=== PATIENT | male | born 1940 | race Caucasian/White ===

== ENCOUNTER 2019-02-04 20:57 | Observation (INO) ==
[2019-02-04] MEDS ORDERED: ASPIRIN PR ONE (21:26)
[2019-02-04] MEDS ORDERED: ASPIRIN PO ONE (21:26)
--- NOTE | 2019-02-04 21:36 | PROVIDER DOCUMENTATION ---
HPI-Respiratory General - General Chief Complaint: Shortness of Breath Stated Complaint: BP 230/113 30 MINUTES AGO Time Seen by Provider: 02/04/19 21:24 Source: patient Allergies/Adverse Reactions: Patient Allergies Allergy/AdvReac Type Severity Reaction Status Date / Time No Known Allergies Allergy Verified 04/09/18 02:50 Home Medications: Home Medication List Medication Instructions Recorded Confirmed Last Taken Type Bupropion HCl [Wellbutrin Xl] 300 mg PO HS 08/24/13 09/15/18 01/14/18 20:00 History Carbidopa/Levodopa [Carbidopa-Levo 1.5 tab PO 4XDAY 04/15/18 09/15/18 Unknown History 10-100 Tab] Carvedilol 25 mg PO BID #60 tab 05/06/18 09/15/18 Unknown Rx Hydralazine [Apresoline] 25 mg PO Q8H #90 tab 05/06/18 09/15/18 Unknown Rx Clonidine [Catapres] 0.2 mg PO TID PRN #15 tab 09/15/18 Unknown Rx Donepezil HCl 10 mg PO HS 09/15/18 09/15/18 Unknown History Duloxetine [Cymbalta] 60 mg PO HS 09/15/18 09/15/18 Unknown History Ibuprofen 800 mg PO DIRECTED 09/15/18 09/15/18 Unknown History Quetiapine Fumarate [Seroquel] 25 mg PO HS 09/15/18 09/15/18 Unknown History Ranitidine HCl [Zantac] 150 mg PO BID 09/15/18 09/15/18 Unknown History - History of Present Illness-Resp Nature of Presenting Problem: 78 YOM PRESENTS WITH C/O L ARM PAIN, HTN, SOB, CONSTIPATION AND ANXIETY. HE REPORTS THAT HIS SOB HAS RESOLVED SINCE ARRIVAL WELL HIS ANXIETY. HE C/O HTN AND THAT EXTRA CLONIDINE DID NOT IMPROVE IT. HE REPORTS CONSTIPATION HAS BEEN CONSTIPATED 4 DAYS AND HAD TO TAKE MULTIPLE LAXATIVES YESTERDAY TO HAVE A BM. HE ALSO C/O PAIN IN HIS LEFT ARM THAT HE DESCRIBES ON AND OFF. HE DENIES CP, FEVER, CHILLS, N/V/D. Quality of Pain: reports: sharp Onset/Duration: reports: 1-3 hours ago Timing: reports: gone now Exposure: reports: unknown cause Cough Quality/Degree: reports: no cough Episode Frequency: no prior episodes Current Respiratory Medication Therapy: Initiated none Modifying Factors: improves with: nothing Associated Symptoms: reports: shortness of breath (RESOLVED BEFORE EXAM) Similar Symptoms Previously?: No Recently seen or treated by another doctor?: No Review of Systems - Adult - REVIEW OF SYSTEMS - ADULT Constitutional: reports: no symptoms reported. denies: see HPI, chills, fever, fatique, night sweats, weight gain, weight loss, other Eyes: reports: no symptoms reported. denies: see HPI, discharge, dry eyes, decreased vision, blurred vision, double vision, eye pain, redness, other Ears, Nose, Mouth & Throat: reports: no symptoms reported. denies: see HPI, ear discharge, ear pain, hearing loss, tinnitus, epistaxis, sinus problem, nose pain, loose teeth, mouth/dental pain, mouth swelling, hoarseness, throat pain, throat swelling, other Cardiovascular: reports: see HPI (L ARM PAIN). denies: no symptoms reported, chest pain, edema, heart murmur, irregular heart rate, orthopnea, palpitations, poor circulation, PND, syncope, other Respiratory: reports: see HPI, shortness of breath (RESOLVED). denies: no symptoms reported, chronic cough, cough, dyspnea on exertion, excessive sputum production, hemoptysis, pleurisy, wheezing, other Gastrointestinal: reports: see HPI, constipation. denies: no symptoms reported, abdominal pain, hematemesis, diarrhea, difficulty swallowing, frequent heartburn, nausea, poor appetite, rectal bleeding, vomiting, other Genitourinary: reports: no symptoms reported. denies: see HPI, dysuria, discharge, frequency, flank pain, frequent UTI's, hematuria, hesitency, incontinence, urinary retention, urgency, other Musculoskeletal: reports: no symptoms reported. denies: see HPI, bone pain, back pain, frequent leg cramps, joint pain, joint swelling, muscle aches, muscle weakness, neck pain, other Integumentary: reports: no symptoms reported. denies: see HPI, hives, hair loss, itching, mole changes, nail changes, rash, skin sores/ulcer, skin thickening, other Neurological: reports: no symptoms reported. denies: see HPI, ataxia, dizziness/vertigo, headache/migraines, loss of balance, numbness, paresthesia, seizure, slurred speech, syncope, tremors, other Psychiatric: reports: no symptoms reported. denies: see HPI, anxiety, anti- depressant use, alcohol/drug dependence, depression, emotional problems, insomnia, panic attacks, suicidal thoughts, other Endocrine: reports: no symptoms reported. denies: see HPI, change in skin pigment, excessive sweating, goiter, cold intolerance, heat intolerance, increased hunger, increased thirst, polyuria, other Hematologic/Lymphatic: reports: no symptoms reported. denies: see HPI, blood clots, easy bruising, low blood count, lymphedema, prolonged bleeding, swollen lymph nodes, transfusions, other Allergic/Immunologic: reports: no symptoms reported. denies: see HPI, allergic reactions, allergic rhinitis, asthma, eczema, food allergy, frequent infections, hay fever, hives, positive PPD, urticaria, other Past History - Adult - PAST MEDICAL HISTORY-ADULT Review of Records: reports: Nursing Assessment Review, Social history reviewed & non-contributory. Major Childhood Illnesses: reports: denies history Cardiovascular: reports: HTN, hyperlipidemia Respiratory: reports: COPD Gastrointestinal: reports: denies history Obstetrical/Gynecological: reports: denies history Genitourinary: reports: prostatitis Musculoskeletal: reports: denies history Neurological: reports: Parkinson's, TIA Endocrine/Immune: reports: anemia, Diabetes Other Conditions: reports: cataract/glaucoma (glaucoma) - PRIOR SURGERIES/PROCEDURES Surgical/Procedure History: reports: joint replacement, other (carotid cath) - IMMUNIZATION STATUS Childhood Immunizations: See Nurse Assessment Flu Vaccine: See Nurse Assessment - FAMILY HISTORY Family History: reviewed, not pertinent Physical Exam-General - PHYSICAL EXAM-ADULT Initial Vital Signs Reviewed: Yes - CONSTITUTIONAL General Appearance: appears well, alert, no apparent distress - EYES Eyes: PERRL/EOMI - HEAD, EARS, NOSE, MOUTH & THROAT HENMT: normocephalic/atraumatic, moist mucous membranes, normal ENT inspection - NECK Neck: non-tender, full range of motion, supple - RESPIRATORY Respiratory: chest non-tender, lungs clear, normal breath sounds, no respiratory distress - CARDIOVASCULAR Cardiovascular: normal peripheral pulses, regular rate, rhythm, no edema, no gallop, no JVD, no murmur - GASTROINTESTINAL (ABDOMEN) Abdominal Exam: normal bowel sounds, non tender, soft - LYMPHATIC Lymphatic: no adenopathy - MUSCULOSKELETAL Back Exam: normal inspection, no CVA tenderness, no vertebral tenderness Extremity: normal range of motion, non-tender, normal gait - SKIN Integumentary: normal color, normal turgor, warm/dry - NEUROLOGIC Neurologic: grossly normal - PSYCHIATRIC Psych/Mental Status: normal mood/affect, oriented x 3 - HEART Score HEART Score: History: Slightly Suspicious HEART Score: ECG: Normal HEART Score: Age: > or = 65 Years HEART Score: Risk Factors for Atherosclerotic Disease: 1 or 2 Risk Factors HEART Score: Troponin: < or = Normal Limit Total HEART Score:: 3 Progress - PLAN OF CARE/RESULTS Progress/Plan/Lab Results: Vital Signs - 8 hr 02/04/19 21:12 Temperature 96 F L Pulse Rate 95 H Respiratory Rate 20 Blood Pressure 196/109 O2 Sat by Pulse Oximetry 95 Laboratory Results - last 24 hr 02/04/19 02/04/19 02/04/19 21:28 21:28 21:28 WBC 5.42 RBC 4.66 L Hgb 14.0 Hct 41.3 L MCV 88.6 MCH 30.0 MCHC 33.9 RDW Std Deviation 13.3 Plt Count 238 MPV 9.1 Immature Gran % (Auto) 0.2 Neut % (Auto) 51.2 Lymph % (Auto) 35.4 Dickens % (Auto) 7.9 Eos % (Auto) 4.6 Baso % (Auto) 0.7 Immature Gran # (Auto) 0.01 Neut # (Auto) 2.77 Lymph # (Auto) 1.92 Dickens # (Auto) 0.43 Eos # (Auto) 0.25 Baso # (Auto) 0.04 PT INR PTT (Actin FS) Sodium 143 Potassium 4.2 Chloride 103 Carbon Dioxide 31 Anion Gap 9 BUN 13 Creatinine 0.8 Estimated GFR/1.73 m2 > 60 BUN/Creatinine Ratio 16 Glucose 105 H Calculated Osmolality 285 Calcium 9.1 Total Bilirubin 0.30 AST 13 ALT < 5 L Alkaline Phosphatase 77 Creatine Kinase 61 Troponin T Pcn-H-Voeknabhdzp Pept 287 Total Protein 6.8 Albumin 4.5 Globulin 2.0 Albumin/Globulin Ratio 2.0 02/04/19 02/04/19 21:28 21:28 WBC RBC Hgb Hct MCV MCH MCHC RDW Std Deviation Plt Count MPV Immature Gran % (Auto) Neut % (Auto) Lymph % (Auto) Dickens % (Auto) Eos % (Auto) Baso % (Auto) Immature Gran # (Auto) Neut # (Auto) Lymph # (Auto) Dickens # (Auto) Eos # (Auto) Baso # (Auto) PT 12.5 INR 0.89 PTT (Actin FS) 29.5 Sodium Potassium Chloride Carbon Dioxide Anion Gap BUN Creatinine Estimated GFR/1.73 m2 BUN/Creatinine Ratio Glucose Calculated Osmolality Calcium Total Bilirubin AST ALT Alkaline Phosphatase Creatine Kinase Troponin T < 0.010 Tcp-B-Fxchtwbzryz Pept Total Protein Albumin Globulin Albumin/Globulin Ratio Orders Category Date Time Status Cardiac Monitoring DIRECTED Care 02/04/19 21:26 Active Oxygen Therapy- ED Nursing DIRECTED Care 02/04/19 21:26 Active Saline Loc NOW Care 02/04/19 21:26 Active CHEST-2 VIEWS [RAD] Stat Exams 02/04/19 21:26 Taken KUB ABDOMEN [RAD] Stat Exams 02/04/19 22:55 Ordered CBC WITH ELECTRONIC DIFF [HEME] Stat Lab 02/04/19 21:28 Completed CK PROFILE [SP CHEM] Stat Lab 02/04/19 21:28 Completed COMPREHENSIVE METABOLIC PANEL [CHEM] Stat Lab 02/04/19 21:28 Completed PRO B-NATRIURETIC PEPTIDE Stat Lab 02/04/19 21:28 Completed PROTIME WITH INR [COAG] Stat Lab 02/04/19 21:28 Completed PTT [COAG] Stat Lab 02/04/19 21:28 Completed TROPONIN T Stat Lab 02/04/19 21:28 Completed Acetaminophen [Tylenol] Med 02/04/19 22:55 Discontinued 1,000 mg PO NOW ONE Aspirin Med 02/04/19 21:26 Discontinued 300 mg NV NOW ONE Aspirin Med 02/04/19 21:26 Discontinued 325 mg PO NOW ONE Clonidine [Catapres] Med 02/04/19 22:35 Discontinued 0.1 mg PO NOW ONE CP/SOB/Palp >45 yrs of Age Stat Oth 02/04/19 21:26 Ordered EKG [EKG] Stat Ther 02/04/19 21:05 Draft Result Diagrams: 02/04/19 21:28 02/04/19 21:28 - REASSESSMENT Reassessment #1 Time Reassessed: 22:36 (PT DENIES ALL COMPLAINTS ) Status: improving - EKG 1 Time of EKG reading by physician:: 21:10 EKG Read and Signed by:: Barbara Bansal EKG Interpretation (*Must complete 3 of following elements*): Abnormal Rate: 94 Rhythm: SR WITH SINUS ARRYTHMIA [place]: normal QRS: LVH (MODERATE VOLTAGE CRITERIA MET) NV Interval: normal ST Wave: normal - XRAY 1 XRAY Study: Chest Impression: Normal (no PNA, EFFISION, PNEUMOTHORAX. READ BY CHIRAG AND MD BANSAL) Departure - Departure Date of Disposition Decision: 02/04/19 Time of Disposition Decision: 23:20 DIAGNOSIS: Hypertensive urgency, Chest pain Disposition: ADMITTED INPATIENT 09 Certified Medical Emergency: Emergent Condition: Stable Additional Freetext Instructions: ED Follow Up Instructions: You have been treated by a care provider in the Emergency Department. These instructions are being provided to you so you can have an understanding of how to care for yourself upon discharge. Upon discharge from the Emergency Department, you are responsible for making arrangements for follow-up care by a physician of your choice. Take all prescribed medications as directed. Return to the Emergency Department immediately for any new or worsening symptoms. You may call the Physician Referral phone number at [phone] to obtain a list of Physicians who are taking new patients. Referrals and Follow-Ups: Canelo Ramirez MD [Primary Care Provider] - - Critical Care Note This patient required my direct & personal management of CC.: No Attestation - Physician/ GREYSON Attestation Patient care was provided by Advanced Practice Provider:: Yes Advanced Practice Provider:: Agnes Nieves Advanced Practice Provider documentation review:: The Mid-level provider documentation, treatment plan and medical decision making was reviewed by the physician who agrees with all treatment and medical decision making by the P. The physician spent face to face time with patient:: No Advanced Practice Provider documentation review:: Supervising physician onsite and consulted in the evaluation and care of this patient. The physician did not have a face to face encounter with the patient.
[2019-02-04 21:39] LABS: BASO# 0.04 X1000 (0.0-0.2); BASO% 0.7 % (0.0-0.8); EOS# 0.25 X1000 (0.0-0.7); EOS% 4.6 % (0.0-10.0); HEMATOCRIT 41.3 % (42.0-52.0); IMM GRAN# 0.01 X1000 (0.0-0.04); IMM GRAN% 0.2 % (0.0-0.5); LYMPH# 1.92 X1000 (1.2-3.4); LYMPH% 35.4 % (20.5-51.1); MCHC 33.9 g/dL (33-37); MCV 88.6 FL (81-99); MONO# 0.43 X1000 (0.11-0.59); MONO% 7.9 % (1.7-9.3); MPV 9.1 FL (7.4-10.4); NEUT# 2.77 X1000 (1.4-6.5); NEUT% 51.2 % (42.2-75.2); PLT 238 X1000 (130-400); RBC 4.66 XMIL (4.7-6.1); RDW 13.3 % (11.5-14.5); WBC 5.42 X1000 (4.8-10.8)
[2019-02-04 21:53] LABS: INR 0.89; PROTIME 12.5 Seconds (11.0-16.0)
[2019-02-04 21:54] LABS: PTT 29.5 Seconds (22.3-41.8)
[2019-02-04 22:12] LABS: AGAP 9; ALBUMIN 4.5 g/dL (3.5-5.0); ALKALINE PHOSPHATASE 77 U/L (32-122); BUN 13 mg/dL (8-22); CALCIUM 9.1 mg/dL (8.8-10.2); CHLORIDE 103 mmol/L (98-107); CK PROFILE 61 U/L (24-204); COSMO 285; CREATININE 0.8 mg/dL (0.7-1.2); ESTIMATED GFR > 60; GLUCOSE 105 mg/dL (70-104); GOT 13 U/L (10-34); GPT < 5 U/L (10-44); POTASSIUM 4.2 mmol/L (3.5-5.1); SODIUM 143 mmol/L (136-145); TCO2 31 mmol/L (25-35); TOTAL PROTEIN 6.8 g/dL (6.3-8.3)
[2019-02-04] MEDS ORDERED: CATAPRES PO ONE (22:35)
[2019-02-04] MEDS ORDERED: TYLENOL PO ONE (22:55)
--- NOTE | 2019-02-04 23:05 | EKG Report ---
Test Performed on : 02/04/2019 9:10:05 PM Test Reason : sob Blood Pressure : / mmHG Vent. Rate : 094 BPM Atrial Rate : 094 BPM P-R Int : 186 ms QRS Dur : 080 ms QT Int : 350 ms P-R-T Axes : 016 -24 002 degrees QTc Int : 437 ms Normal sinus rhythm. with sinus arrhythmia. Moderate voltage criteria for LVH, may be normal variant Borderline ECG When compared with ECG of 15-SEP-2018 16:27, Vent. rate has increased BY 34 BPM Unconfirmed Result
[2019-02-04] MEDS ORDERED: MORPHINE IV PRN (23:21)
[2019-02-05] MEDS ORDERED: MORPHINE IV PRN (00:47)
[2019-02-05] MEDS ORDERED: SINEMET 10/100 PO ONE (00:48)
[2019-02-05] MEDS: APRESOLINE IV PRN ×2 (01:15→06:02)
[2019-02-05] MEDS ORDERED: CATAPRES PO PRN (06:57)
--- NOTE | 2019-02-05 07:09 | Diag Imaging Result Doc PS360 ---
EXAM: CHEST-2 VIEWS - 02/04/2019 HISTORY: sob TECHNIQUE: Chest two views COMPARISON: 09/15/2018 FINDINGS: Heart size is normal. There is tortuosity of the thoracic aorta similar to prior. There are stable tiny right mid lung granuloma from old granulomatous disease. There is slight right mid lung linear scarring. The lungs otherwise appear clear. There is no pleural effusion or pneumothorax identified. IMPRESSION: No evidence of acute disease. Electronically signed by Wild Amin 02/05/2019 7:07 AM
--- NOTE | 2019-02-05 07:12 | Diag Imaging Result Doc PS360 ---
EXAM: KUB ABDOMEN - 02/04/2019 HISTORY: constipation c flank pain x 4 days TECHNIQUE: KUB abdomen COMPARISON: 04/25/2018 nasogastric tube placement FINDINGS: The bowel gas pattern appears nonspecific and nonobstructive. There is gas visible in multiple nondistended small bowel loops. There is a moderate amount retained fecal debris in the colon. IMPRESSION: Nonspecific bowel gas pattern. Apparent constipation. Electronically signed by Wild Amin 02/05/2019 7:10 AM
[2019-02-05] MEDS: APRESOLINE PO SCH ×3 (08:06→16:32)
[2019-02-05] MEDS: SINEMET 10/100 PO SCH ×4 (08:06→20:54)
[2019-02-05] MEDS: COREG PO SCH ×2 (08:07→20:54)
[2019-02-05] MEDS: MIRALAX PO SCH ×2 (13:05→20:55)
[2019-02-05] MEDS: MOTRIN PO PRN (16:33)
--- NOTE | 2019-02-05 19:08 | HISTORY AND PHYSICAL ---
CHIEF COMPLAINT: Shortness of breath, constipation. HISTORY OF PRESENT ILLNESS: This is a 78-year-old gentleman with a history of hypertension, alcohol use and abuse. He presents to the emergency room complaining of hypertension, shortness of breath, left arm pain, and constipation. He states that shortness of breath and anxiety resolved after arriving at the hospital. He did state that he has been constipated for 4 days prior, taking multiple laxatives, and having a small BM just prior to symptoms starting. He reports having to strain quite a bit to pass this stool. Once passing the stool, symptoms improved greatly. He does complain of left arm pain. He describes this as a sharp pain that comes and goes. He stated that the arm pain stopped shortly after arriving in the emergency room, and he has had no recurrence. He denied any syncope or dizziness, any palpitations, any nausea or vomiting, any black or bloody vomitus or stools. PAST MEDICAL HISTORY: 1. Hypertension. 2. COPD. 3. Hyperlipidemia. 4. Parkinson's disorder. 5. Diabetes mellitus. 6. Gastroesophageal reflux disease. PAST SURGICAL HISTORY: 1. Carotid artery endarterectomy on the right. 2. Right shoulder arthroplasty. 3. Right knee arthroplasty. 4. Spine surgery. SOCIAL HISTORY: He lives at home with his son. He is retired. He drinks beer and liquor. He denies any illicit drug use. ALLERGIES: No known drug allergies. HOME MEDICATIONS: 1. Ibuprofen 800 mg as needed. 2. Apresoline 50 mg p.o. q.8 hours. 3. Cymbalta 60 mg p.o. at bedtime. 4. Benazepril 10 mg p.o. at bedtime. 5. Clonidine 0.2 p.o. t.i.d. 6. Carvedilol 25 mg p.o. b.i.d. 7. Carbidopa/levodopa 1.5 tablets 4 times a day. REVIEW OF SYSTEMS: Discussed with the patient with pertinent positives as stated in the HPI. He denied any syncope, dizziness, palpitations, any chest pain, any nausea, vomiting, diarrhea, black or bloody vomitus or stools, any hematuria, dysuria, frequency, urgency, productive cough, fever, chills. PHYSICAL EXAMINATION: GENERAL: This is a 78-year-old gentleman who is sitting up in the bed in no distress. VITAL SIGNS: Blood pressure is 119/53 with a heart rate of 56, respirations are 16, temperature is 98.3 degrees, with room air saturations 97% to 98%. HEENT: Head is normocephalic, atraumatic. Mucous membranes are moist. Pupils are equal, round, react to light. NECK: Supple, with trachea midline. CARDIOVASCULAR: Regular rate and rhythm. S1 and S2 are appreciated. He has no lower extremity edema. Calves are nontender bilaterally with peripheral pulses palpable x4 extremities. PULMONARY: Breath sounds are clear. No increased work of breathing noted. Chest rises and falls symmetrically with respiration. Chest wall is nontender to palpation. GASTROINTESTINAL: Abdomen is soft, nontender, and nondistended with bowel sounds in all 4 quadrants. GENITOURINARY: He has no CVA or suprapubic tenderness. NEUROLOGIC: He is alert and oriented x3. SKIN: Warm and dry. LABS: WBC is 5.4, with hemoglobin 14, hematocrit 41.3, platelets of 238,000. Sodium 143, potassium 4.2, BUN 13, creatinine 0.8, glucose of 105. Troponin is negative. Chest x-ray revealed no evidence of acute disease. Abdominal x-ray: Nonspecific bowel gas pattern with constipation. EKG reveals sinus rhythm at a rate of 94 with LVH. ASSESSMENT AND PLAN: 1. Abdominal pain and constipation. bowel regimen with MiraLAX and monitor. 2. Left arm pain that he reports being chronic for which he takes Motrin 800 mg as needed. at home. We will continue this. 3. Hypertension. 4. Parkinson's disease. 5. Diabetes mellitus. Patterned blood glucose with sliding scale insulin. 6. History of coronary artery disease. 7. Gastroesophageal reflux disease. Prilosec. 8. History of alcohol use and abuse. The patient is not forthcoming when his last drink was. will monitor. Identify home medications and continue as is appropriate. BMP and a CBC in the morning. Plan was discussed with Dr. Mackay. Further treatments pending hospital course. Dictated by CHIRAG Logan for Americo Mackay MD cc: CHIRAG Logan MD [facility]
[2019-02-05] MEDS ORDERED: MOVANTIK PO ONE ×2 (20:35→21:15)
[2019-02-05] MEDS ORDERED: CYMBALTA PO SCH (21:00)
[2019-02-05] MEDS ORDERED: ARICEPT PO SCH (21:00)
--- NOTE | 2019-02-05 22:03 | HISTORY AND PHYSICAL ---
ADDENDUM: we will admit patient to the hospital today with shortness of breath. We will follow his blood pressures which are elevated. Does have a history of Parkinson's, which very likely may be the cause of his blood pressure going up and down so sporadically. We will continue to follow. cc: Americo Mackay MD
[2019-02-06] MEDS: APRESOLINE PO SCH ×4 (00:04→17:26)
[2019-02-06 05:42] LABS: HEMATOCRIT 36.9 % (42.0-52.0); HEMOGLOBIN 11.9 g/dL (14.0-18.0); MCH 28.7 PG (27-31); MCHC 32.2 g/dL (33-37); MCV 89.1 FL (81-99); MPV 9.4 FL (7.4-10.4); RBC 4.14 XMIL (4.7-6.1); RDW 13.2 % (11.5-14.5); WBC 5.45 X1000 (4.8-10.8)
[2019-02-06 06:10] LABS: AGAP 7; BUN 11 mg/dL (8-22); CALCIUM 8.2 mg/dL (8.8-10.2); CHLORIDE 103 mmol/L (98-107); COSMO 275; CREATININE 0.6 mg/dL (0.7-1.2); ESTIMATED GFR > 60; GLUCOSE 103 mg/dL (70-104); POTASSIUM 3.7 mmol/L (3.5-5.1); SODIUM 138 mmol/L (136-145); TCO2 28 mmol/L (25-35)
[2019-02-06] MEDS ORDERED: PRILOSEC PO SCH (07:00)
[2019-02-06] MEDS: COZAAR PO SCH ×2 (07:46→08:09)
[2019-02-06] MEDS: APRESOLINE IV PRN (07:49)
[2019-02-06] MEDS: SINEMET 10/100 PO SCH ×2 (08:09→14:44)
[2019-02-06] MEDS: MIRALAX PO SCH (08:09)
[2019-02-06] MEDS: COREG PO SCH (08:09)
--- NOTE | 2019-02-06 08:41 | Diag Imaging Result Doc PS360 ---
KUB ABDOMEN - 02/06/2019 INDICATION: constipation COMPARISON: 02/04/2019 FINDINGS: There is a nonobstructive bowel gas pattern. No free air or abdominal calcifications. No significant constipation. IMPRESSION: Negative exam. Electronically signed by Percy Desouza 02/06/2019 8:39 AM
[2019-02-06] MEDS ORDERED: FLEET MINERAL OIL ENEMA PR ONE (12:37)
[2019-02-06] MEDS ORDERED: FLEET ENEMA PR ONE (12:37)
[2019-02-06] MEDS: MOTRIN PO PRN (14:48)
[2019-02-06 15:21] VITALS: BP 185/60
--- NOTE | 2019-02-06 18:58 | PROGRESS NOTE ---
DATE: 02/06/2019 SUBJECTIVE: Patient still has complaints of abdominal pain, nausea, and constipation. States he has still not had a bowel movement. OBJECTIVE: Temperature 98, pulse 58, respiratory 20, BP 130 to 203 over 69.General: Patient is awake. He is in no distress. HEENT: Normocephalic. Neck: Supple. Cardiovascular: Regular rate. Chest: Clear. Abdomen: Soft. Extremities: Moves all extremities. ASSESSMENT: 1. Hypertension. Still very poorly controlled. We will continue to increase his blood pressure medications. 2. Constipation. 3. Left arm pain. 4. Parkinson's. 5. Diabetes. PLAN: We will continue patient in the hospital. Continue to monitor for alcohol withdrawal. Continue to adjust his blood pressure medications. We will change his medications for constipation. Further orders as needed. cc: Americo Mackay MD
--- NOTE | 2019-02-06 19:02 | DISCHARGE SUMMARY ---
ADMISSION DATE: 02/04/2019 DISCHARGE DATE: 02/06/2019 DIAGNOSES: 1. Abdominal pain constipation, resolved. 2. Left arm pain, chronic. It is improved. 3. Hypertension. 4. Parkinson disease. 5. Diabetes mellitus type 2. 6. History of coronary artery disease. 7. History of alcohol use and abuse. DIAGNOSTICS: Chest x-ray revealed no evidence of acute disease. Heart size is normal. There is tortuosity of the thoracic aorta similar to prior. There is stable tiny right mid lung granuloma from old granulomatous disease. There is slight right mid lung scarring. The lungs otherwise appear clear. There is no pleural effusion or pneumothorax. Abdominal x-ray, nonspecific bowel gas pattern. Apparent constipation. 02/06/2019, abdomen x-ray revealed negative exam. HOSPITAL COURSE: Mr. Angel presented to the emergency room complaining of shortness of breath and constipation. He states that he had been constipated for 4 days. He had taken multiple laxative at home, having a small stool. Symptoms improved, then shortly after returned. He was given MiraLAX while in the hospital and had no further bowel movement. He was given Fleet's oil enema followed by a saline enema and he had a large bowel movement which he stated relieved his abdominal symptoms. He complained of chronic left arm pain which resolved and did not recur after taking Motrin. Thankfully he is ready for discharge. DISCHARGE VITAL SIGNS: Blood pressure is 116/51 with a heart rate of 50, respirations are 16, temperature is 97.7 degrees oral, with room air saturations 97%. OBJECTIVE: Cardiovascular: Regular rate and rhythm. S1, S2 appreciated. He had no lower extremity edema. Calves nontender. Bilateral peripheral pulses palpable x4 extremities. Pulmonary: Breath sounds are clear. No increased work of breathing noted. Chest rises and falls symmetric with respiration. Chest wall is nontender to palpation. Gastrointestinal: Abdomen is soft, nontender, nondistended. Bowel sounds in all 4 quadrants. DISCHARGE MEDICATIONS: 1. Clonidine 0.2 mg p.o. t.i.d. 2. Carvedilol 25 mg p.o. b.i.d. 3. Hydralazine 25 mg p.o. q.8 hours. 4. Ibuprofen 800 mg p.o. as directed. 5. Benazepril 10 mg p.o. at bedtime. 6. Cymbalta 60 mg p.o. at bedtime. 7. Carbidopa/levodopa 1-06/18 p.o. 4 times a day. FOLLOW-UP INSTRUCTIONS: Dr. Canelo Ramirez in 1 to 2 weeks sooner if needed. He needs to call Saturday to schedule an appointment. DISCHARGE INSTRUCTIONS: He has been instructed to call to be seen sooner or return to the emergency room for any syncope, dizziness, chest pain, palpitations, any shortness of breath, cough, temperature greater than 101, any chills any nausea, vomiting, diarrhea, constipation, black or bloody vomitus or stools, hematuria, dysuria, frequency, urgency. DISPOSITION: He is being discharged home in stable condition with family members. TIME SPENT: This is a greater than 30 minute discharge. Dictated by CHIRAG Logan for Americo Mackay MD cc: CHIRAG Logan MD [facility]. James, MD [facility]
--- NOTE | 2019-02-08 09:48 | DISCHARGE SUMMARY ---
ADMISSION DATE: 02/04/2019 DISCHARGE DATE: 02/06/2019 DISCHARGE DIAGNOSIS: 1. Constipation. 2. Abdominal pain. 3. Hypertension. 4. Parkinson's. 5. Diabetes. 6. Chronic reflux. 7. Chronic alcohol abuse. CONSULTATIONS: None. PROCEDURES: None. BRIEF HOSPITAL COURSE: The patient is a 78-year-old male who presented to the hospital with constipation and markedly elevated blood sugars. Elevated blood pressures. Blood pressure was difficult to manage as it would frequently go from 130s to 200s. Expect that his Parkinson's has a lot to do with his sporadic blood pressures as well as his constipation. Thankfully, he was able to take some medication for constipation and improved. DISCHARGE PHYSICAL EXAMINATION: General: On discharge, he is awake and alert. He is in no distress. HEENT: Normocephalic. Neck: Supple. Cardiovascular: Regular rate. Chest: Clear. Abdomen: Soft. Extremities: Moves all extremities. Does have generalized weakness, but notes that he is able to care for himself at home. PLAN: We will discharge the patient home. He will continue to follow with his primary care. We did adjust his blood pressure medications as noted on his discharge list. TIME SPENT: Thirty-five minutes was spent in total care. cc: Americo Mackay MD
== END 2019-02-06 17:14 | disposition home or self-care (01) ==
LOC: P.MEDSURG 20:57 → P.ED 20:57
PROVIDERS: ADMIT Family Medicine; ATTEND Family Medicine